=== PATIENT | male | born 1995 | race African-American/Black ===

== ENCOUNTER 2017-03-14 23:44 | Emergency (ER) | payer BC ==
[~2017-03-14] VITALS: Ht 185.4 cm; Wt 117.9 kg
[~2017-03-14 23:44] MED LIST: BACTRIM DS TAB1 EACH PO
[2017-03-15] MEDS ORDERED: NAPROSYN500 MG PO (00:48)
[2017-03-15] MEDS ORDERED: HYDROCODONE-AP1 EAC6 PO (00:48)
[2017-03-15 01:15] VITALS: BP 149/101
== END 2017-03-15 01:23 | disposition home or self-care (01) ==
LOC: ER 23:44
DX: S93.401A Sprain of unspecified ligament of right ankle, initial encounter (principal); X50.0XXA Overexertion from strenuous movement or load, initial encounter; X50.9XXA Other and unspecified overexertion or strenuous movements or postures, initial encounter; Y93.67 Activity, basketball; Y92.89 Other specified places as the place of occurrence of the external cause; Y99.8 Other external cause status